=== PATIENT | male | born 1975 | race Caucasian/White ===

== ENCOUNTER 2017-09-14 14:13 | Emergency (ER) | payer OTHER ==
[2017-09-14] MEDS: Lidocaine 2% 5 ML SDV INJECT ONE (14:40)
[2017-09-14] MEDS: methylPREDNISolone Acetate 40 MG/ML SDV IM ONE (14:40)
[2017-09-14 14:55] VITALS: BP 138/87
--- NOTE | 2017-09-14 14:57 | EDM.PDOC ---
ED HPI GENERAL MEDICAL PROBLEM - General Chief Complaint: General Stated Complaint: Bilat Knee Pain Time Seen by Provider: 09/14/17 14:20 Source of Information: Reports: Patient History Limitations: Reports: No Limitations - History of Present Illness INITIAL COMMENTS - FREE TEXT/NARRATIVE: Patient is a 42-year-old gentleman who presents with left knee pain states that is progressively getting worse in the last 3 weeks he did have similar pain approximately a year ago which lasted about 6 weeks at this time patient was examined Onset: Gradual Duration: Week(s): (3 weeks), Getting Worse Location: Reports: Lower Extremity, Left Quality: Reports: Ache, Stabbing Severity: Moderate Improves with: Reports: Medication Worsens with: Reports: Rest Context: Reports: Activity 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 - Related Data Allergies Allergy/AdvReac Type Severity Reaction Status Date / Time No Known Allergies Allergy Verified 12/21/15 07:14 Home Meds: Home Meds Nebivolol [Bystolic] 5 mg PO DAILY 12/07/15 [History] Olmesartan/Amlodipin/Hcthiazid [Tribenzor 40-10-25 MG] 1 tab PO DAILY 12/07/15 [ History] Ibuprofen 800 mg PO QID PRN MDD 16 tabs total daily 09/14/17 [History] Past Medical History - Past Health History Medical/Surgical History: Denies Medical/Surgical History Cardiovascular History: Reports: Hypertension Respiratory History: Reports: Sleep Apnea, Other (See Below) Other Respiratory History: Hospitalized for pneumonia in 2013 requiring a chest tube. Endocrine/Metabolic History: Reports: Obesity/BMI 30+ Oncologic (Cancer) History: Reports: Other (See Below) Other Oncologic History: Skin cancer to nose. Dermatologic History: Reports: Other (See Below) Other Dermatologic History: Skin cancer to nose - Past Surgical History HEENT Surgical History: Reports: Oral Surgery, Tonsillectomy, Other (See Below) Social & Family History - Caffeine Use Caffeine Use: Reports: Tea ED ROS GENERAL - Review of Systems Review Of Systems: See Below Constitutional: Reports: No Symptoms HEENT: Reports: No Symptoms Respiratory: Reports: No Symptoms Cardiovascular: Reports: No Symptoms Endocrine: Reports: No Symptoms GI/Abdominal: Reports: No Symptoms : Reports: No Symptoms Musculoskeletal: Reports: Joint Pain Skin: Reports: No Symptoms Neurological: Reports: No Symptoms Psychiatric: Reports: No Symptoms Hematologic/Lymphatic: Reports: No Symptoms Immunologic: Reports: No Symptoms ED EXAM, GENERAL - Physical Exam Exam: See Below Exam Limited By: No Limitations General Appearance: Alert, WD/WN, Moderate Distress (cring) Ears: Normal External Exam, Normal Canal, Hearing Grossly Normal, Normal TMs Nose: Normal Inspection, Normal Mucosa, No Blood Throat/Mouth: Normal Inspection, Normal Lips, Normal Teeth, Normal Gums, Normal Oropharynx, Normal Voice, No Airway Compromise Head: Atraumatic, Normocephalic Neck: Normal Inspection, Supple, Non-Tender, Full Range of Motion Respiratory/Chest: No Respiratory Distress, Lungs Clear, Normal Breath Sounds, No Accessory Muscle Use, Chest Non-Tender Cardiovascular: Normal Peripheral Pulses, Regular Rate, Rhythm, No Edema, No Gallop, No JVD, No Murmur, No Rub GI/Abdominal: Normal Bowel Sounds, Soft, Non-Tender, No Organomegaly, No Distention, No Abnormal Bruit, No Mass (Male) Exam: Deferred Rectal (Males) Exam: Deferred Back Exam: Normal Inspection, Full Range of Motion, NT Extremities: Limited Range of Motion Neurological: Alert, Oriented, CN II-XII Intact, Normal Cognition, Normal Gait, Normal Reflexes, No Motor/Sensory Deficits Psychiatric: Normal Affect, Normal Mood Skin Exam: Warm, Dry, Intact, Normal Color, No Rash ED GENERAL MEDICAL PROCEDURES - Additional/Other Procedure(s) Other (Free Text) Procedure(s): Patient is a 43-year-old who underwent injection of the left knee we went ahead and prepped his knee with high declines then draped it in the general standard form using 2% lidocaine the skin was numbed and the intra-articular space was identified we will proceeded to inject 2 mL's of lidocaine with 1 mL of Depo- Medrol into the left knee using lateral approach patient tolerated well will be sent home in satisfactory condition follow-up in clinic in the next week. Course - Orders/Labs/Meds Meds: Medications Discontinued Medications Generic Name Dose Route Start Last Admin Trade Name Freq PRN Reason Stop Dose Admin Lidocaine 5 ml 09/14/17 14:36 Xylocaine-Mpf 2% INJECT 09/14/17 14:37 ONETIME ONE Methylprednisolone Acetate 40 mg 09/14/17 14:37 Depo-Medrol IM 09/14/17 14:38 ONETIME ONE Departure - Departure Time of Disposition: 15:04 Disposition: Home, Self-Care 01 Condition: Fair Clinical Impression: Posterior left knee pain - Discharge Information Instructions: Knee Pain, Adult Referrals: Leatha Swift NP [Primary Care Provider] -
== END 2017-09-14 15:15 | disposition home or self-care (01) ==
LOC: LL.ED 14:13
DX: M25.561 Pain in right knee (principal); M25.562 Pain in left knee; I10 Essential (primary) hypertension; Z79.899 Other long term (current) drug therapy
CPT/HCPCS: 20610; 99283; J1030

== ENCOUNTER 2022-08-17 13:23 | Emergency (ER) | payer BC ==
[2022-08-17] MEDS ORDERED: Lidocaine 1% 5 ML VIAL INJECT ONE (13:47)
[2022-08-17] MEDS ORDERED: Bacitracin Oint 1 GM U/D Packet TOP ONE (14:40)
[2022-08-17 16:26] VITALS: BP 130/86; PULSE 72
== END 2022-08-17 15:05 | disposition home or self-care (01) ==
LOC: LL.ED 13:23
DX: S61.213A Laceration without foreign body of left middle finger without damage to nail, initial encounter (principal); E66.9 Obesity, unspecified; I10 Essential (primary) hypertension; Z79.899 Other long term (current) drug therapy; Z68.41 Body mass index [BMI] 40.0-44.9, adult; W29.0XXA Contact with powered kitchen appliance, initial encounter
CPT/HCPCS: 12001; 99282; 99283; J3490

== ENCOUNTER 2024-10-04 13:23 | Emergency (ER) | payer BC ==
[2024-10-04] MEDS ORDERED: Sodium Chloride 0.9% 10 ML Syringe FLUSH PRN (13:40)
[2024-10-04 13:54] LABS: BASOPHILS ABSOLUTE AUTO 0.04 K/uL (0.00-0.20); BASOPHILS PERCENT AUTO 0.5 % (0.0-2.0); EOSINOPHILS ABSOLUTE AUTO 0.25 K/uL (0.00-0.50); EOSINOPHILS PERCENT AUTO 2.9 % (0.0-5.0); IMMATURE GRAN ABSOLUTE AUTO 0.02 10^3/uL (0.00-0.04); IMMATURE GRAN PERCENT AUTO 0.2 % (0.0-0.4); LYMPHOCYTES ABSOLUTE AUTO 2.09 K/uL (0.50-3.50); LYMPHOCYTES PERCENT AUTO 24.6 % (10.0-50.0); MONOCYTES ABSOLUTE AUTO 0.66 K/uL (0.00-1.00); MONOCYTES PERCENT AUTO 7.8 % (2.0-14.0); NEUTROPHILS ABSOLUTE AUTO 5.45 K/uL (1.40-7.00); NEUTROPHILS PERCENT AUTO 64.0 % (45.0-80.0); PLATELET COUNT,PLT 238 K/uL (150-350); RED BLOOD CELL COUNT 5.17 M/uL (4.33-5.41); RED CELL DISTRIBUTION WIDTH 12.9 % (11.2-14.1); WHITE BLOOD CELL COUNT,WBC 8.5 K/uL (4.0-10.2)
[2024-10-04 14:11] VITALS: PULSE 92
[2024-10-04 14:19] LABS: ALANINE AMINOTRANSFERASE,ALT 59.0 U/L (12-78); ASPARTATE AMNIOTRANSFERASE,AST 28.0 U/L (15-37); BILIRUBIN TOTAL 0.5 mg/dL (0.2-1.0); BLOOD UREA NITROGEN,BUN 16.0 mg/dL (7-18); CARBON DIOXIDE,CO2 29.7 mmol/L (21.0-32.0); CHLORIDE,CL 99.0 mmol/L (98-107); CREATININE 1.19 mg/dL (0.51-1.17); EST CRCL DRUG DOSING (CG) 73.44 mL/min; GLUCOSE RANDOM 164.0 mg/dL (70-99); POTASSIUM,K 3.7 mmol/L (3.5-5.1); PROTEIN TOTAL,TP 7.5 g/dL (6.4-8.2); SODIUM,NA 135.0 mmol/L (136-145)
[2024-10-04 14:22] LABS: ESTIMATED GFR 74.0 mL/min (>=60)
[2024-10-04 14:37] VITALS: BP 144/89
[2024-10-04 14:37] LABS: APPEARANCE,URINE CLEAR; GLUCOSE,URINE NEGATIVE (NEGATIVE); OCCULT BLOOD,URINE NEGATIVE (NEGATIVE)
[2024-10-04 14:45] LABS: EPITHELIAL CELLS,URINE RARE /LPF
== END 2024-10-04 15:30 | disposition home or self-care (01) ==
LOC: LL.ED 13:23
DX: S30.1XXA Contusion of abdominal wall, initial encounter (principal); R60.0 Localized edema; Z79.84 Long term (current) use of oral hypoglycemic drugs; Z79.899 Other long term (current) drug therapy; W22.8XXA Striking against or struck by other objects, initial encounter
CPT/HCPCS: 36415; 74019; 80053; 81001; 83605; 83735; 83880; 85025; 99283; 99284